=== PATIENT | female | born 1960 | race African-American/Black ===

== ENCOUNTER 2020-05-27 13:59 | Emergency (ER) | payer OTHER ==
[~2020-05-27] VITALS: Ht 170.2 cm; Wt 88.5 kg
[2020-05-27] MEDS ORDERED: METFORMIN HCL500 M3 PO (16:49)
[2020-05-27] MEDS ORDERED: ZOFRAN ODT4 MG PO (17:23)
[2020-05-27] MEDS ORDERED: FLEXERIL PO (17:23)
[2020-05-27] MEDS ORDERED: IBUPROFEN 600600 M1 PO (17:23)
[2020-05-27 17:35] VITALS: BP 135/55
== END 2020-05-27 17:40 | disposition home or self-care (01) ==
LOC: ER 13:59
DX: S06.0X0A Concussion without loss of consciousness, initial encounter (principal); S16.1XXA Strain of muscle, fascia and tendon at neck level, initial encounter; S29.012A Strain of muscle and tendon of back wall of thorax, initial encounter; S63.501A Unspecified sprain of right wrist, initial encounter; S70.02XA Contusion of left hip, initial encounter; S40.012A Contusion of left shoulder, initial encounter; S60.221A Contusion of right hand, initial encounter; K21.9 Gastro-esophageal reflux disease without esophagitis; Z79.899 Other long term (current) drug therapy; Z88.0 Allergy status to penicillin; V03.99XA Pedestrian with other conveyance injured in collision with car, pick-up truck or van, unspecified whether traffic or nontraffic accident, initial encounter; Y93.89 Activity, other specified; Y92.89 Other specified places as the place of occurrence of the external cause; Y99.8 Other external cause status

== ENCOUNTER 2021-01-05 12:38 | Inpatient (IN) | payer BC, OTHER ==
[~2021-01-05] VITALS: Ht 170.2 cm; Wt 87.5 kg
--- NOTE | ~2021-01-05 | O ---
[facility] [place] [address] OPERATIVE REPORT Name: ANDI HAMM Room #: 443-P ADM IN M.R.#: [id number] Admission: 01/05/21 Attend Phys: Sherrill Salas MD Discharge: Date of : 56 Report #: [id number] THIS REPORT FOR: cc: Torrie Oh MD, Sequita MD ~ DATE OF SERVICE: 01/08/2021 PREOPERATIVE DIAGNOSIS: Bilateral distal ureteral calculi, left sided flank pain. POSTOPERATIVE DIAGNOSIS: Bilateral distal ureteral calculi, left sided flank pain. PROCEDURE: Cystoscopy, bilateral ureteroscopy, laser stone manipulation, bilateral double-J stent. SURGEON: Vikash Parker M.D. ANESTHESIA: General. COMPLICATIONS: None. DRAINS: Right 6 x 24 and left 6 x 26 double-J stent. FINDINGS: Bilateral distal ureteral calculi impacted. DISPOSITION: Follow up in 5-7 days for stent removal. HISTORY: This is a 60-year-old female who presented several days ago to the Emergency Room with left sided flank pain, was diagnosed with bilateral distal ureteral stones. No signs of any sepsis. Went through trial of stone passage and tried them for several days, but was unable to pass these. Repeat CT scan showed the stones in the same location. She now presents for definitive management of her stones with ureteroscopy. I discussed risks, benefits, expected outcomes and alternatives and gave informed consent with her. DESCRIPTION OF PROCEDURE: She was taken back to the operating room and given preoperative antibiotics and general anesthetic, prepped and draped in standard sterile fashion in dorsal lithotomy position on the operating table. Surgical timeout was performed. Upon inspection of the urethra it was normal with a 22-Maltese cystoscope. Upon inspection of the bladder, it was normal as well. I cannulated the left ureteral orifice with a guidewire but it would not go initially. I used a 7-Maltese semi-rigid ureteroscope and intubated the distal ureter and was able to [facility] [address] [place] [address] OPERATIVE REPORT Name: ANDI HAMM Room #: 443-P [facility] IN ..#: [id number] Admission: 01/05/21 Attend Phys: Sherrill Salas MD Discharge: Date of : 56 Report #: [id number] get my guidewire beyond the impacted stone. Once it was up in the kidney I offloaded my ureteroscope. I then treated it in situ with a 200 micron holmium laser fiber at a setting of 8 bills and broke up the stones into small fragments, which were removed with a 0 tip basket. The ureter appeared to be uninjured on removal. I offloaded my ureteroscope, unloaded my cystoscope over my guidewire, passed my open-ended catheter up the UPJ, opacified the collecting system, measured out ureteral length and passed a 6 x 26 double-J stent with a nice coil seen in the renal pelvis and bladder. The bladder was drained. Attention was then directed to the right side where an open-ended catheter and a guidewire was inserted into the right ureteral orifice and was able to pass the stone without difficulty in the distal ureter. I then looked in with my 7-Maltese scope and about 2 cm in there was a 5 mm stone, about the same size as the other side, it was impacted as well. This was a little bit more impacted, it had been present for quite a bit of time. I was able to use my 200 micron holmium laser fiber and break up all the stone fragments, remove them with the basket. The ureter appeared to be uninjured on my way out. I offloaded my ureteroscope, unloaded my cystoscope over my guidewire, passed my open-ended catheter up the UPJ, opacified the collecting system, showing no extravasation, measured out ureteral length and passed a 6 x 24 double-J stent with a nice coil seen in the renal pelvis and a nice coil seen in the bladder. The bladder was drained. PLAN: Follow up in the office in 5-7 days for stent removal. By: [id number] /nt
[~2021-01-05 12:38] MED LIST: FLEXERIL PO; IBUPROFEN 600600 M1 PO; METFORMIN HCL500 M3 PO; ZOFRAN ODT4 MG PO
[2021-01-05 13:47] VITALS: BP 139/101
[2021-01-05 13:49] LABS: URINE BILIRUBIN NEGATIVE (Negative); URINE BLOOD 3+ (Negative); URINE CLARITY SL CLOUDY; URINE COLOR YELLOW; URINE GLUCOSE-RANDOM* NEGATIVE (Negative); URINE KETONES NEGATIVE (Negative); URINE LEUKOCYTES-REFLEX NEGATIVE (Negative); URINE NITRITE-REFLEX NEGATIVE (Negative); URINE PROTEIN (DIPSTICK) 1+ (Negative); URINE SPECIFIC GRAVITY >= 1.030 (1.005-1.035); URINE UROBILINOGEN 0.2 E.U./dl (0.2-1.0)
[2021-01-05 13:53] LABS: HEMATOCRIT 40.5 % (37.0-47.0); HEMOGLOBIN 13.5 gm/dL (12.0-15.0); MCH 30.4 pg (26.0-34.0); MCHC 33.3 g/dL (28.0-37.0); MCV 91.3 fL (80.0-100.0); RBC 4.43 mil/uL (4.20-5.00); WBC 8.3 thou/uL (4.0-11.0)
[2021-01-05 14:00] LABS: CALCIUM 9.5 mg/dL (8.5-10.1); CREATININE 0.9 mg/dL (0.6-1.0); POTASSIUM 3.6 mmol/L (3.5-5.1)
[2021-01-05 14:05] LABS: ALBUMIN 3.9 g/dL (3.4-5.0); TOTAL BILIRUBIN 0.3 mg/dL (0.2-1.0); TOTAL PROTEIN 7.4 g/dL (6.4-8.2)
[2021-01-05 14:07] LABS: SQUAMOUS 4-10 Moderate /LPF (0-3)
[2021-01-05 14:08] LABS: BACTERIA-REFLEX 1-9 Few /HPF (None Seen); CALCIUM OXALATE >10 Many /LPF (None Seen); MUCUS 0-3 Light strn/LPF (None Seen); URINE RBC >20 Many /HPF (NONE SEEN); URINE WBC-REFLEX 0-5 Rare /HPF (0-5)
[2021-01-05 18:43] VITALS: BP 135/48
[2021-01-05 19:34] VITALS: BP 147/42
[2021-01-05 20:15] VITALS: BP 129/41
--- NOTE | 2021-01-06 03:08 | NUR ---
PT ARRIVED FROM THE ER @1999 A&OX4. DENIES APIN, NAUSEA AND VOMITING ON ASSESSMENT. IV INTACT AND FLUIDS INFUSING. PT UP AD FRANCK TO THE BATHROOM. FALL EDUCATION PROVIDED. ADMISSION DONE AND PT ORIENTED TO THE UNIT. NPO AT MIDNIGHT FOR POSSIBLE SX TOMORROW. WILL CONT TO MONITOR.
[2021-01-06 04:54] VITALS: BP 134/80
[2021-01-06 05:27] LABS: BASOPHILS 0.8 % (0.0-2.0); EOSINOPHILS 3.1 % (0.0-3.0); HEMATOCRIT 39.2 % (37.0-47.0); HEMOGLOBIN 12.8 gm/dL (12.0-15.0); LYMPHOCYTES 27.9 % (24.0-44.0); MCH 29.9 pg (26.0-34.0); MCHC 32.6 g/dL (28.0-37.0); MCV 91.7 fL (80.0-100.0); PLATELET COUNT 188 thou/uL (150-400); POLYS 60.2 % (36.0-66.0); RBC 4.27 mil/uL (4.20-5.00); RDW 13.2 % (10.5-14.5); WBC 6.7 thou/uL (4.0-11.0)
[2021-01-06 05:37] LABS: INR 0.94; PROTIME 10.3 Seconds (10.5-12.1)
[2021-01-06 05:49] LABS: CALCIUM 8.9 mg/dL (8.5-10.1); CREATININE 0.9 mg/dL (0.6-1.0); MAGNESIUM 2.1 mg/dL (1.8-2.4); PHOSPHORUS 3.2 mg/dL (2.5-4.9); POTASSIUM 3.6 mmol/L (3.5-5.1)
[2021-01-06 10:12] VITALS: BP 139/74
--- NOTE | 2021-01-06 11:38 | NUR ---
ASSESSMENT: CM REVIEWED CHART AND SPOKE WITH PATIENT AT THE BEDSIDE. PT WAS ADMITTED DUE TO BILATERAL DISTAL URETERAL STONE. PT REPORTS THAT SHE IS HOPING TO PASS IT AND NOT NEED SURGERY. UROLOGY HAS BEEN CONSULTED. PT REPORTS THAT SHE LIVES IN A HOME WITH HER . PT REPORTS BEING FULLY INDEPENDENT WITH ADLS AND AMBULATION. PT REPORTS THAT SHE HAS NEVER HAD HH OR SNF IN THE PAST. CM DISCUSSED ROLE. PT REPORTS BEING FULLY INDEPENDENT AND DOES NOT ANTICIPATE HAVING ANY NEEDS FROM CM. CM WILL CONTINUE TO FOLLOW TO ASSIST NEEDED.
[2021-01-06 16:09] VITALS: BP 136/75
--- NOTE | 2021-01-06 16:42 | NUR ---
A/O, calm and pleasant. refused the surgery, denied pain. no nause or vomiting. urine had been drained to check if any kidney stones were out.
[2021-01-06 18:57] VITALS: BP 118/57; BP 18/57
[2021-01-07 01:06] LABS: GLYCOHEMOGLOBIN (HGB A1C) 7.9 % (4.8-5.6)
--- NOTE | 2021-01-07 03:09 | NUR ---
ASSESSED AT START OF SHIFT. PT RESTING AND VOIDING WELL. IV INTACT AND FLUID INFUSING. STRAINING URINE NO STONES FOUND. TYELNOL GIVEN FOR HEADACHE. PT UP AD FRANCK. NO FURTHER SIGNS OF DISCOMFORT WILL CONT TO MONITOR.
[2021-01-07 04:22] VITALS: BP 131/73
[2021-01-07 06:26] LABS: CALCIUM 8.7 mg/dL (8.5-10.1); CREATININE 0.9 mg/dL (0.6-1.0)
[2021-01-07 07:10] VITALS: BP 126/71
--- NOTE | 2021-01-07 11:58 | NUR ---
ON-GOING ASSESSMENT: CM REVIEWED CHART. PT THOUGHT SHE HAD PASSED STONE SO CT OF PELVIS WAS ORDERED. CT SHOWING 4MM STONE. CM WILL CONTINUE TO FOLLOW. UROLOGY IS ON THE CASE. PT SHOULD HAVE NO NEEDS FROM CM PRIOR TO DISCHARGE. AWAITING FURTHER RECOMMENDATIONS AT THIS TIME.
--- NOTE | 2021-01-07 14:19 | NUR ---
PT ALERT AND ORIENTED TIMES FOUR. VSS, IVF INFUSING PER ORDER. PT DENEIS PAIN/SOA AT THIS TIME. PT TOLEARETS MEDS EATS SMALL PORTIONS OF MEALS. PT WILL BE NPO AFTER MIDNIGHT FOR SURGERY TOMORROW. PT UP AB FRANCK WITH STEADY GAIT. PT AT BEDSIDE THIS AFTERNOON. WILL CONTINUE TO MONITOR.
[2021-01-07 20:05] VITALS: BP 122/63
--- NOTE | 2021-01-08 02:57 | NUR ---
ASSESSED AT START OF SHIFT. PT A&OX4. IV INTACT AND FLUIDS INFUSING. NPO AT MIDNIGHT FOR SURGERY TOMORROW. UP ADLIB VOIDS IN THE BATHROOM. URINE STRAINED NO STONES. CALL LIGHT AT REACH WILL CONT TO MONITOR.
[2021-01-08 04:48] VITALS: BP 138/67
[2021-01-08 07:30] VITALS: BP 131/73
--- NOTE | 2021-01-08 13:18 | NUR ---
PT PICKED UP AND TAKEN TO SURGERY. VSS. DENIES PAIN.
[2021-01-08] MEDS ORDERED: CIPRO500 M1 PO (16:39)
[2021-01-08] MEDS ORDERED: FLOMAX0.4 MG PO (16:39)
[2021-01-08] MEDS ORDERED: NORCO5 PO (16:39)
--- NOTE | 2021-01-08 16:48 | NUR ---
Pt had cysto, left and right urs, laser stone stent done this day. Urology and hospitalist indicated that pt is medically stable to dc home this day. Pt is to dc home to self care. No other cm intervention indicated. Case closed.
[2021-01-08 17:41] VITALS: BP 130/58
[2021-01-08 19:14] VITALS: BP 138/79
[2021-01-09 04:28] VITALS: BP 114/61
[2021-01-09 07:12] VITALS: BP 140/79
--- NOTE | 2021-01-09 07:49 | NUR ---
AGREE ON REASSESSMENT CHARTING BY Soheila HAMM LPN.
[2021-01-09 08:08] VITALS: BP 140/79
--- NOTE | 2021-01-09 09:06 | NUR ---
ASSUMED PT CARE THIS AM. PT IS ALERT & ORIENTED X4. PT HAS IV SITE ON RFA RUNNING D5 1/2NS @ 1125ML/HR. PT IS UP AD FRANCK. PT IS ON ROOM AIR. PT IS ACCUCHECK ACHS. PT C/O OF PAIN AND GIVEN PAIN MEDICATION PER PT REQUEST. PT ON THE BED, BED ON THE LOWEST POSITION, SIDE RAILS UP, CALL LIGHT WITHIN REACH. WILL CONTINUE TO MONITOR PT. FOLLOW POC.
[2021-01-09 09:23] VITALS: BP 140/79
[2021-01-09] MEDS ORDERED: IBU600 MG PO (09:47)
--- NOTE | 2021-01-09 11:57 | NUR ---
DISCHARGE NOTE: SW reviewed chart and spoke with attending physician. Pt is medically stable for discharge home today. Pt stayed last night due to pain management. Pt to discharge today. No discharge needs identified. SW is available to assist should needs arise.
--- NOTE | 2021-01-13 12:06 | PATH ---
[facility] [place] [address] PATHOLOGY RPT PROCEDURE Name: ANDI SANTA Room #: 443-P DIS IN M.R.#: [id number] Admission: 01/05/21 Date of : 56 Discharge: 01/09/21 Report #: [id number] Path Case #: [id number] [facility] Accession Number: [id number] . 01 Material submitted: . ureter - URETERAL STONES . 01 Clinical history: . CYSTO W/ URETEROSCOPY, STONE MANIPULATION LASER PROCEDURE BILATERAL URETERAL CALCULUS NV, DIABETIC, LEFT SIDE PAIN . 02 Diagnosis: Bilateral ureteral Calculus: - Consistent with Calculus. - The specimen is sent out for further processing. Report pending outside analysis with results to follow in an addendum. [facility] 01/09/2021 1544 Local . 02 Electronically signed: . Mell Alvarez MD, Pathologist NPI- [id number] . 01 Gross description: . The specimen is received fresh, labeled "Andi Santa, bilaterally ureteral calculus". It consists of 8 dark yellow-brown calculus measuring 0.2 x 0.2 x 0.1 cm. The specimen is forwarded to sendouts for further processing.([facility]; 01/09/2021) [facility] 01/09/2021 1542 Local . 02 Pathologist provided ICD-10: N20.1 . 02 CPT . 904622 Specimen Comment: A courtesy copy of this report has been sent to [phone], [phone] Specimen Comment: [phone] Specimen Comment: Report sent to DR. TABOR / DR BROWN Specimen Comment: A duplicate report has been generated due to demographic updates. Performed at: [address] [id number] MD Isrrael Shaver MD Phone: [phone] Performed at: [address] [address] PATHOLOGY RPT PROCEDURE Name: ANDI SANTA Room #: 443-P DIS IN M.R.#: [id number] Admission: 01/05/21 Date of : 56 Discharge: 01/09/21 Report #: [id number] Path Case #: [id number] [address] [id number] MD Mell Alvarez MD Phone: [phone]
== END 2021-01-09 14:35 | disposition home or self-care (01) | DRG 660 ==
LOC: ER 12:38 → EROBS 17:08 → 4S 17:08
PROVIDERS: Nurse Practitioner Family; Physician Assistant; ADMIT Internal Medicine; ATTEND Internal Medicine
PROC: 0TC78ZZ Extirpation of Matter from Left Ureter, Via Natural or Artificial Opening Endoscopic (ICD-10-PCS; principal; 2021-01-08)
PROC: 0T788DZ Dilation of Bilateral Ureters with Intraluminal Device, Via Natural or Artificial Opening Endoscopic (ICD-10-PCS; principal; 2021-01-08)
PROC: 0TC68ZZ Extirpation of Matter from Right Ureter, Via Natural or Artificial Opening Endoscopic (ICD-10-PCS; principal; 2021-01-08)
DX: N13.2 Hydronephrosis with renal and ureteral calculous obstruction (principal); N13.4 Hydroureter; E87.0 Hyperosmolality and hypernatremia; K21.9 Gastro-esophageal reflux disease without esophagitis; E11.9 Type 2 diabetes mellitus without complications; K76.0 Fatty (change of) liver, not elsewhere classified; Z20.822 Contact with and (suspected) exposure to COVID-19; Z88.0 Allergy status to penicillin
CPT/HCPCS: 10195; 50010; 50101; 50164; 51620; 51767; 56674; 56815; 57160; 58510; 58565; 58732; 62110; 62900; 70005